=== PATIENT | male | born 2000 | race Caucasian/White ===

== ENCOUNTER 2022-09-16 10:22 | Emergency (ER) | payer OTHER ==
[~2022-09-16] VITALS: Ht 162.6 cm; Wt 68.0 kg
[2022-09-16 10:26] VITALS: BP 133/83; PULSE 77; RESP 18; TEMP 97.2; O2SAT 98
--- NOTE | 2022-09-16 10:31 | NUR ---
DIARRHEA X 6 DAYS, LOSS OF APPETITE, NAUSEA, AND HEADACHE. DENIES ABDOMINAL PAIN. RECENT TRAVEL TO [place] ONE DAY PRIOR TO ONSET OF SYMPTOMS. DENIES FEVERS, DENIES SICK CONTACTS. PMH: DENIES
--- NOTE | 2022-09-16 10:45 | NUR ---
Note undone in EDM - 09/16/22 at 1057 by [email or web address] PATIENT PRESENTS TO ED WITH SIGNS AND SYMPTOMS OF DIARRHEA FOR 6 DAYS.PT STATES SHE HAS LOSS APPETITE, NAUSEA AND HEADACHE. PT STATES SHE HAS TRAVELED TO [place] 1 WEEK AGO. PT DENIES ABD PAIN SKIN IS PINK/WARM/DRY; AAOX4 WITH EVEN AND STEADY GAIT; LUNGS CLEAR BL; HR EVEN AND REGULAR; PT DENIES ANY FEVER, CP, SOB, OR COUGH AT THIS TIME; PATIENT STATES PAIN OF 0/10 AT THIS TIME; VSS; PATIENT POSITIONED FOR COMFORT; HOB ELEVATED; BEDRAILS UP X2; BED DOWN. CALL LIGHT WITH IN REACH, [facility] HOLDER MADE AWARE OF PT STATUS. STOOL SAMPLE OBTAINED AND SENT TO LAB. PMHX NONE NKA
[2022-09-16 10:54] VITALS: O2SAT 98
--- NOTE | 2022-09-16 10:56 | NUR ---
22 Y/0 M FROM HOME; PATIENT PRESENTS TO ED WITH SIGNS AND SYMPTOMS OF DIARRHEA FOR 6 DAYS.PT STATES HE HAS HAD LOSS APPETITE, NAUSEA AND HEADACHE. PT STATES HE HAS TRAVELED TO [place] 1 WEEK AGO. PT DENIES ABD PAIN SKIN IS PINK/WARM/DRY; AAOX4 WITH EVEN AND STEADY GAIT; LUNGS CLEAR BL; HR EVEN AND REGULAR; PT DENIES ANY FEVER, CP, SOB, OR COUGH AT THIS TIME; PATIENT STATES PAIN OF 0/10 AT THIS TIME; VSS; PATIENT POSITIONED FOR COMFORT; HOB ELEVATED; BEDRAILS UP X2; BED DOWN. CALL LIGHT WITH IN REACH, ER MADE AWARE OF PT STATUS. STOOL SAMPLE OBTAINED AND SENT TO LAB. PMHX NONE NKA
[2022-09-16 11:15] LABS: BASOPHILS # (AUTO) 0.1 K/uL (0.00-0.22); BASOPHILS % (AUTO) 0.6 % (0.0-2.0); EOSINOPHILS # (AUTO) 0.3 K/uL (0-0.4); HEMATOCRIT 46.5 % (36-52); HEMOGLOBIN 16.2 g/dL (12.0-18.0); LYMPHOCYTES # (AUTO) 2.4 K/uL (2.0-11.5); LYMPHOCYTES % (AUTO) 27.5 % (20.5-51.1); MEAN CORPUSCULAR HEMOGLOBIN 31 pg (27-31); MEAN CORPUSCULAR HGB CONC 35 g/dL (33-37); MEAN CORPUSCULAR VOLUME 88.6 fL (80-94); MONOCYTES % (AUTO) 11.4 % (1.7-9.3); NEUTROPHILS # (AUTO) 4.9 K/uL (1.8-7.7); NEUTROPHILS % (AUTO) 57.5 % (42.2-75.2); PLATELET COUNT (AUTO) 209 K/uL (140-450); RED BLOOD CELL COUNT(AUTO) 5.25 MIL/uL (4.20-6.10); RED CELL DISTRIBUTION WIDTH 14.1 % (11.6-13.7); WHITE BLOOD COUNT (AUTO) 8.6 K/uL (4.8-10.8)
[2022-09-16 11:21] LABS: ANION GAP 10.7 (8-16); CREATININE 0.9 mg/dL (0.6-1.3); POTASSIUM 3.7 mmol/L (3.5-5.1)
[2022-09-16] MEDS ORDERED: LOPE1TAB14 PO (11:47)
--- NOTE | 2022-09-16 12:01 | NUR ---
Patient discharged with v/s stable. Written and verbal after care instructions given and explained. Patient verbalized understanding. Ambulatory with steady gait. All questions addressed prior to discharge. Advised to follow up with PMD.
[2022-09-16 12:03] VITALS: BP 133/83; PULSE 77; RESP 18; TEMP 97.2
== END 2022-09-16 12:01 | disposition home or self-care (01) ==
LOC: MED 10:22
DX: R19.7 Diarrhea, unspecified (principal); Z79.899 Other long term (current) drug therapy
CPT/HCPCS: 36415; 80048; 85025; 99283